=== PATIENT | female | born 1980 | race Caucasian/White ===

== ENCOUNTER 2017-10-15 08:16 | Day surgery (SDC) | payer BC ==
--- NOTE | 2017-10-10 14:40 | GHP ---
[f rep st] HISTORY AND PHYSICAL HISTORY OF PRESENT ILLNESS: Patient is a 36-year-old G1, P0 that presented to the office on 10/08/2017 for her new OB visit. She was noted to have an 8 week 2 day crown-rump length with no cardiac activity noted which is consistent with missed AB. The patient denied any cramping or bleeding. We discussed MAB management and patient opted for surgical D and C. MEDICATIONS: vitamin. ALLERGIES: No known drug allergies. PAST MEDICAL HISTORY: noncontributory SOCIAL HISTORY: She is a non-tobacco user. Denies any illicit street drugs. She does report occasional alcohol use, but none since positive test. She is . is Levi. PAST SURGICAL HISTORY: LEEP 2012. OBSTETRICAL HISTORY: G1. REVIEW OF SYSTEMS: CONSTITUTIONAL: Denies any fever, chills or fatigue. HEENT: Denies any visual changes, difficulty swallowing, hearing loss. CARDIOVASCULAR: Denies any chest pain, palpitations, leg swelling. RESPIRATORY: Denies any cough, wheezing, shortness of breath. GI: Denies any nausea, vomiting, diarrhea, constipation. : She denies any dysuria, urgency, frequency, vaginal bleeding. MUSCULOSKELETAL: She denies any muscle or bone pain. SKIN: Denies any rashes. NEURO: Denies any headaches, seizures, lightheadedness, dizziness or loss of consciousness. PSYCHIATRIC: She denies any depression, anxiety. PHYSICAL EXAMINATION: Done on 10/08/2017. CONSTITUTIONAL: Well nourished, white female, alert and oriented x3. HEENT: Normocephalic, atraumatic. HEART: Regular rate and rhythm, no murmur noted. CHEST: Clear to auscultate bilaterally. ABDOMEN: Soft, nontender. EXTREMITIES: No edema noted. Negative Juan F's sign. NEURO: Grossly normal. PSYCH: Normal affect, appropriate for situation. ASSESSMENT: 1) 36-year-old G1 with MAB at 8 weeks 2 days. PLAN: 1) Admit for surgical D and C procedure. DATE OF SURGERY: 10/15/2017 at 9:30 a.m. /[id number]/MODL MTDD
[2017-10-15] MEDS ORDERED: MIDAZOLAM 2 MG/2 ML VIAL IVP ONE (09:00)
[2017-10-15] MEDS ORDERED: DOXYCYCLINE HYCLATE 100 MG CAP/TAB PO ONE (09:39)
[2017-10-15] MEDS ORDERED: MIDAZOLAM 2 MG/2 ML VIAL ONE (09:50)
[2017-10-15] MEDS ORDERED: LR 1,000 ML IV SCH (10:00)
--- NOTE | 2017-10-15 10:00 | PDANEPAE ---
ANE History of Present Illness Missed Ab. ANE Past Medical History - Cardiovascular History Hx Hypertension: No Hx Arrhythmias: No Hx Chest Pain: No Hx Coronary Artery / Peripheral Vascular Disease: No Hx CHF / Valvular Disease: No Hx Palpitations: No - Pulmonary History Hx COPD: No Hx Asthma/Reactive Airway Disease: No Hx Recent Upper Respiratory Infection: No Hx Oxygen in Use at Home: No Hx Sleep Apnea: No - Surgical History Prior Surgeries: None. ANE Review of Systems Review of systems is: negative Review of Systems: - Exercise capacity Exercise capacity: >=4 METS ANE Patient History - Allergies Allergies/Adverse Reactions: No Known Allergies Allergy (Unverified 10/15/17 08:45) - NPO status NPO Since - Liquids (Date): 10/14/17 NPO Since - Liquids (Time): 22:30 NPO Since - Solids (Date): 10/14/17 NPO Since - Solids (Time): 22:30 - Anes Hx Anes Hx: no prior problems - Smoking Hx Smoking Status: Never smoked - Alcohol Use Alcohol Use: Rarely - Family Anes Hx Family Anes Hx: neg - N/A ANE Labs/Vital Signs - Vital Signs Blood Pressure: 109/65 Heart Rate: 59 Respiratory Rate: 16 O2 Sat (%): 95 ANE Physical Exam - Airway Neck exam: FROM Mallampati Score: Class 1 - Pulmonary Pulmonary: no respiratory distress - Cardiovascular Cardiovascular: regular rate and rhythym - ASA Status ASA Status: I ANE Anesthesia Plan Anesthesia Plan: GA with mask
[2017-10-15] MEDS ORDERED: fentaNYL 100 MCG/2 ML INJ ONE (10:11)
[2017-10-15] MEDS ORDERED: PROPOFOL/EMULSION 500 MG/50 ML BOTTLE IV ONE (10:12)
[2017-10-15] MEDS ORDERED: LIDOCAINE 2% 5 ML SDV ONE (10:12)
[2017-10-15] MEDS ORDERED: ONDANSETRON 4 MG/2 ML VIAL ONE ×2 (10:12)
[2017-10-15] MEDS ORDERED: DEXAMETHASONE 4 MG/ML VIAL ONE ×2 (10:12)
--- NOTE | 2017-10-15 10:22 | PDHPUP ---
History & Physical Update H&P update statement: This history and physical update is based on an assessment of the patient which was completed after admission or registration (within 24 hours), but prior to the surgery/procedure. H&P update: H&P reviewed & patient examined, no change in patient's condition since H&P completed
--- NOTE | 2017-10-15 11:22 | POSTANESTH ---
Post Anesthetic Evaluation Cardiovascular Status: Normal, Stable, Similar to Pre-Op Cond Respiratory Status: Normal, Stable, Similar to Pre-op Cond. Level of Consciousness/Mental Status: Can Participate in Eval, Mildly Sleepy, Arousable Pain Control: Adequate, Prn Tx Ordered Nausea/Vomiting Control: Adequate, Prn Tx Ordered Complications Possibly Related to Anesthesia: None Noted
[2017-10-15] MEDS ORDERED: NALOXONE HCL 0.4 MG/ML INJ IVP PRN (11:23)
[2017-10-15] MEDS ORDERED: fentaNYL 100 MCG/2 ML INJ IVP PRN (11:23)
[2017-10-15] MEDS ORDERED: METOCLOPRAMIDE 10 MG/2 ML VIAL IVP PRN (11:23)
[2017-10-15] MEDS ORDERED: LR 500 ML IV PRN (11:23)
[2017-10-15] MEDS ORDERED: HYDROCODONE/APAP 5/325 TAB PO PRN (11:23)
--- NOTE | 2017-10-15 11:36 | POSTOPPROG ---
Post Op Note Date of Operation: 10/15/17 Surgeon: Jodi Hwang Anesthesiologist: Santiago Camargo MD Anesthesia: Other (Specify) (General with mask) Pre-op Diagnosis: MAB at 8w2d Post-op Diagnosis: same Indication: 36 yo G1 at 9w2d gestation by LMP, 8w2d gestation by CRL, nonviable IUP Procedure: dilation of cervix and suction curettage of uterus Findings: as expected volume of POC Inf/Abcess present in the surg proc area at time of surgery?: No EBL: 100-500 Total fluids administered: 1400 Complications: none
--- NOTE | 2017-10-15 11:54 | GOP ---
[f rep st] OPERATIVE REPORT DATE OF OPERATION: 10/15/2017 SURGEON: Jodi Hwang MD ANESTHESIA: General with mask. ANESTHESIOLOGIST: John Camargo MD. PREOPERATIVE DIAGNOSIS: Missed at 8 weeks. POSTOPERATIVE DIAGNOSIS: Missed at 8 weeks. PROCEDURE PERFORMED: Dilation and suction curettage. FINDINGS: ESTIMATED BLOOD LOSS: 300 cc. INDICATIONS: A 36-year-old 1 female who is found to have a nonviable on October 08 with a crown rump length of 8 weeks 2 days. She opted for medical management. Written informed cons ent was obtained and all questions were answered. DESCRIPTION OF PROCEDURE: She was taken to the operating room and placed in the dorsal supine position. When general anesthesi a was deemed adequate, she was placed in the dorsal lithotomy position with the blue padded stirrups. Her vagina and perineum were sterilely prepared and draped in the standard fashion. A brief ultras ound was performed and did confirm a nonviable intrauterine with a pole present, but no heartbeat. A timeout was performed. She was given 100 mg of doxycycline in the preoperativ e area before entering the operating room. A speculum was then inserted. Uterus sounded initially to 12.5 cm. A tenaculum was placed on the an terior lip of the cervix. The dilators were used to dilate her cervix up to 8 mm. A curved suction c urette was inserted and used to evacuate the uterine contents. A brief sharp curettage was also perf ormed, followed by another suction curettage. Abdominal ultrasound was performed and confirmed an em pty uterus with a thin stripe. The tenaculum was removed from the cervix. Some bimanual massage was performed to confirm that the uterus was completely clamped down. Silver nitrate was applied to the tenaculum site in order to obtain hemostasis. Patient was awakened in the operating room and taken to the recovery room in stable condition. Spong e, lap, and needle counts were correct x2. COMPLICATIONS: None. IV FLUIDS: 1400 cc. URINE OUTPUT: Patient voided immediately prior to the procedure. /[id number]/MODL
[2017-10-15 12:04] VITALS: BP 111/67
== END 2017-10-15 12:11 | disposition home or self-care (01) ==
LOC: FSGY 08:16 → UNDOADMOB 09:39 → FLD 09:39 → FOBOP 12:11
PROVIDERS: ATTEND Hospitalist
PROC: 10D17ZZ Extraction of Products of Conception, Retained, Via Natural or Artificial Opening (ICD-10-PCS; principal; 2017-10-15)
DX: O02.1 Missed abortion (principal)
CPT/HCPCS: J1100; J2250; J2405; J2704; J3010

== ENCOUNTER → 2018-04-01 | Outpatient (CLI) | payer BC | LOC: FIMAGING 12:23 | PROVIDERS: ATTEND Advanced Practice Midwife | DX: O09.521 Supervision of elderly multigravida, first trimester (principal); Z3A.01 Less than 8 weeks gestation of pregnancy ==